=== PATIENT | male | born 1995 | race Caucasian/White ===

== ENCOUNTER 2017-01-19 19:47 | Observation (INO) | payer OTHER ==
[2017-01-19] MEDS ORDERED: NS 1,000 ML IV ONE (20:10)
--- NOTE | 2017-01-19 20:14 | EDPHY ---
H & P Smoking Status: Never smoked Time Seen by Provider: 01/19/17 20:02 HPI/ROS: HPI Right lower abdominal pain. 21 year old male by private vehicle with his mother. This patient complains of worsening right lower quadrant abdominal pain since this morning. Denies testicular pain. He has had some mild nausea but no vomiting. His last meal was about 4 hours ago. Last bowel movement was 4 hours ago. No bloody or melenic stool. No diarrhea. No prior abdominal surgical history. ROS: Constitutional: No fever, no chills. No weakness. Eyes: No discharge. No changes in vision. ENT: No sore throat. No nasal congestion or rhinorrhea. Respiratory: No cough. No shortness of breath. Cardiac: No chest pain, no palpitations. Gastrointestinal: As above, no vomiting, no diarrhea. Genitourinary: No hematuria. No dysuria or increased frequency with urination. No testicular pain. Musculoskeletal: No back pain. No neck pain. No myalgias or arthralgias. Skin: No rashes. Neurological: No headache. No focal weakness or altered sensation. Past medical history: Denies. Social history: His mother is a nurse here at this hospital. He is here in the room currently by himself. Nonsmoker. No alcohol. Physical Exam: General Appearance: Alert, no distress. This patient is responding to questions appropriately and in full sentences. This patient appears well- hydrated and well-nourished. Eyes: Pupils equal and round no pallor or injection. No lid edema, erythema or injection. Respiratory: There are no retractions, lungs are clear to auscultation with good air movement bilaterally. Cardiovascular: Regular rate and rhythm. No murmur. Gastrointestinal: Abdomen is soft with moderate focal right lower quadrant tenderness on palpation at McBurney's point, no masses, bowel sounds normal. No Smith sign. Neurological: Motor sensory function is grossly intact. Cranial nerves are normal. Gait is normal. Skin: Warm and dry, no rashes. Musculoskeletal: Neck is supple and nontender. Extremities are symmetrical. All joints range without pain or impingement. Psychiatric: No agitation. No depression. Database: EKG: Imaging: CT scan of abdomen and pelvis with IV contrast: Procedures: Emergency department course: IV placed. Patient was started on IV normal saline with 1 L to be given over the next hour. He will be NPO. He does not require pain medication at this time. Plan for CT imaging to evaluate for acute appendicitis discussed with him. He consents. 8:55 p.m., we are still awaiting the patient's chemistry panel. He has not gone to CT at this time. His care was turned over to Dr. René Welch at 9: 00 p.m.. Differential Diagnosis: The differential diagnosis on this patient includes but is not limited to appendicitis. Urinary tract infection, ureterolithiasis, testicular torsion, epididymitis unlikely. This represents a partial list of diagnoses considered. These considerations are based on history, physical exam, past history, reassessment and diagnostic testing. (Ortiz Taylor) Constitutional: Initial Vital Signs Temperature (C) 36.6 C 01/19/17 20:04 Heart Rate 59 L 01/19/17 20:04 Respiratory Rate 16 01/19/17 20:04 Blood Pressure 138/64 H 01/19/17 20:04 O2 Sat (%) 97 01/19/17 20:04 O2 Delivery Mode Room Air Allergies/Adverse Reactions: amoxicillin Allergy (Verified 01/19/17 20:03) Penicillins Allergy (Verified 01/19/17 20:03) Home Medications: Medication Instructions Recorded Wellbutrin 100mg (*) 01/19/17 Medical Decision Making ED Course/Re-evaluation: 2130: I did see and evaluate this patient patient is resting comfortably. Declined any pain medicine he states when he does not move does not have any significant abdominal pain however when he goes does sit up he gets sharp stabbing pain in his right lower quadrant. He notices since early this morning around 9:00 a.m.. He has not any vomiting. Denies fever. CT scan abdomen pelvis with IV contrast called to me by Dr. Farah. Reports acute appendicitis. 10 mm hyperemic. No perforation. No abscess I have ordered this patient IV Invanz. He declined pain medicine. I will speak with Dr. Steinberg for admission for acute appendicitis. (René Welch) - Data Points Laboratory Results: Laboratory Results 01/19/17 20:20 01/19/17 20:20 01/19/17 01/19/17 01/19/17 21:05 20:20 20:20 WBC 12.43 10^3/uL H 10^3/uL (3.80-9.50) RBC 5.32 10^6/uL 10^6/uL (4.40-6.38) Hgb 16.7 g/dL g/dL (13.7-17.5) Hct 47.0 % % (40.0-51.0) MCV 88.3 fL fL (81.5-99.8) MCH 31.4 pg pg (27.9-34.1) MCHC 35.5 g/dL g/dL (32.4-36.7) RDW 11.5 % % (11.5-15.2) Plt Count 181 10^3/uL 10^3/uL (150-400) MPV 10.8 fL fL (8.7-11.7) Neut % (Auto) 74.0 % % (39.3-74.2) Lymph % (Auto) 16.5 % % (15.0-45.0) [place] % (Auto) 8.2 % % (4.5-13.0) Eos % (Auto) 0.9 % % (0.6-7.6) Baso % (Auto) 0.2 % L % (0.3-1.7) Nucleat RBC Rel Count 0.0 % % (0.0-0.2) Absolute Neuts (auto) 9.19 10^3/uL H 10^3/uL (1.70-6.50) Absolute Lymphs (auto) 2.05 10^3/uL 10^3/uL (1.00-3.00) Absolute Monos (auto) 1.02 10^3/uL H 10^3/uL (0.30-0.80) Absolute Eos (auto) 0.11 10^3/uL 10^3/uL (0.03-0.40) Absolute Basos (auto) 0.03 10^3/uL 10^3/uL (0.02-0.10) Absolute Nucleated RBC 0.00 10^3/uL 10^3/uL (0-0.01) Immature Gran % 0.2 % % (0.0-1.1) Immature Gran # 0.03 10^3/uL 10^3/uL (0.00-0.10) Sodium 140 mEq/L mEq/L (134-144) Potassium 3.6 mEq/L mEq/L (3.5-5.2) Chloride 99 mEq/L mEq/L (97-110) Carbon Dioxide 25 mEq/l mEq/l (22-31) Anion Gap 16 mEq/L mEq/L (8-16) BUN 14 mg/dL mg/dL (7-23) Creatinine 1.0 mg/dL mg/dL (0.7-1.3) Estimated GFR > 60 Glucose 84 mg/dL mg/dL (70-100) Calcium 9.8 mg/dL mg/dL (8.5-10.4) Urine Color YELLOW Urine Appearance TURBID Urine pH 7.0 (5.0-7.5) Ur Specific [place] 1.016 (1.002-1.030) Urine Protein NEGATIVE (NEGATIVE) Urine Ketones NEGATIVE (NEGATIVE) Urine Blood NEGATIVE (NEGATIVE) Urine Nitrate NEGATIVE (NEGATIVE) Urine Bilirubin NEGATIVE (NEGATIVE) Urine Urobilinogen NEGATIVE EU EU (0.2-1.0) Ur Leukocyte Esterase NEGATIVE (NEGATIVE) Urine RBC NONE SEEN /hpf /hpf (0-3) Urine WBC NONE SEEN /hpf /hpf (0-3) Ur Epithelial Cells NONE SEEN /lpf /lpf (NONE-1+) Amorphous Sediment PRESENT /hpf /hpf (NONE-1+) Urine Glucose NEGATIVE (NEGATIVE) Medications Given: Discontinued Medications Sodium Chloride (Ns) 1,000 mls @ 0 mls/hr IV EDNOW ONE; Wide Open PRN Reason: Protocol Stop: 01/19/17 20:11 Last Admin: 01/19/17 20:16 Dose: 1,000 mls Departure - Departure Clinical Impression: Lower abdominal pain Referrals: NONE *PRIMARY CARE P,. [Primary Care Provider] - As per Instructions
[2017-01-19 20:24] LABS: % IMMATURE GRANULYOCYTES 0.2 % (0.0-1.1); ABSOLUTE IMMATURE GRANULOCYTES 0.03 10^3/uL (0.00-0.10); ADD DIFF? NO; ADD MORPH? NO; ADD SCAN? NO; ATYPICAL LYMPHOCYTE FLAG 0 (0-99); FRAGMENT RBC FLAG 0 (0-99); HEMOGLOBIN 16.7 g/dL (13.7-17.5); LEFT SHIFT FLG 0 (0-99); LIPEMIA HEMOLYSIS FLAG 90 (0-99); MEAN CELL HEMOGLOBIN 31.4 pg (27.9-34.1); MEAN CELL HEMOGLOBIN CONCENTR. 35.5 g/dL (32.4-36.7); MEAN CELL VOLUME 88.3 fL (81.5-99.8); MEAN PLATELET VOLUME 10.8 fL (8.7-11.7); PLATELET CLUMPS FLAG 0 (0-99); PLATELET COUNT 181 10^3/uL (150-400); RED BLOOD CELL COUNT 5.32 10^6/uL (4.40-6.38); RED CELL DISTRIBUTION WIDTH 11.5 % (11.5-15.2)
[2017-01-19 21:01] LABS: ANION GAP 16 mEq/L (8-16); CALCIUM 9.8 mg/dL (8.5-10.4); CARBON DIOXIDE 25 mEq/l (22-31); CHLORIDE 99 mEq/L (97-110); GLOMERULAR FILTRATION RATE > 60; GLUCOSE 84 mg/dL (70-100); POTASSIUM 3.6 mEq/L (3.5-5.2); SODIUM 140 mEq/L (134-144)
[2017-01-19] MEDS ORDERED: IOPAMIDOL (ISOVUE-300) 100 ML BTL ONE (21:10)
[2017-01-19 21:26] LABS: COLOR YELLOW; LEUKOCYTE ESTERASE,URINE NEGATIVE (NEGATIVE); NITRITE,URINE NEGATIVE (NEGATIVE)
[2017-01-19 21:32] LABS: AMORPHOUS PRESENT /hpf (NONE-1+)
[2017-01-19 21:38] LABS: RBC,URINE NONE SEEN /hpf (0-3); WBC,URINE NONE SEEN /hpf (0-3)
[2017-01-19] MEDS ORDERED: ERTAPENEM 1 GM in NS 100 ML IV ONE (22:21)
[2017-01-19] MEDS ORDERED: HYDROmorphONE/DILAUDID 2 MG/ML INJ IVP PRN (22:47)
[2017-01-19] MEDS ORDERED: ONDANSETRON 4 MG/2 ML VIAL IVP ONE (22:48)
[2017-01-19] MEDS ORDERED: LR 1,000 ML IV SCH (23:45)
[2017-01-19] MEDS ORDERED: HYDROmorphONE/DILAUDID 1 MG/ML INJ IVP PRN (23:51)
[2017-01-19] MEDS ORDERED: ONDANSETRON 4 MG/2 ML VIAL IVP PRN (23:52)
--- NOTE | 2017-01-19 23:56 | PDGENHP ---
History and Physical - Chief Complaint abdominal pain - History of Present Illness 21 y/o male with abd pain starting this AM, localizing to the RLQ He came to the [facility] ED and a CT was obtained which showed appendicitis. Surgical consultation was requested History Information - Allergies/Home Medication List Allergies/Adverse Reactions: amoxicillin Allergy (Verified 01/19/17 20:03) Penicillins Allergy (Verified 01/19/17 20:03) Home Medications: Wellbutrin 100mg (*) 01/19/17 [Last Taken Unknown] I have personally reviewed and updated: family history, medical history, social history, surgical history - Surgical History Additional surgical history: circumcision age 14 - Social History Smoking Status: Never smoked Alcohol Use: Rarely Drug Use: Other (former use of marijuana/none currently) Review of Systems Review of Systems: Constitutional: Reports: no symptoms EENMT: Reports: no symptoms Cardiac: Reports: no symptoms Respiratory: Reports: no symptoms Gastrointestinal: Reports: abdominal pain, abdominal distention, nausea Genitourinary: Reports: no symptoms Muscolosketal: Reports: no symptoms Skin: Reports: no symptoms Neurological: Reports: no symptoms Hematologic/Lymphatic: Reports: no symptoms Immunologic/Allergy: Reports: no symptoms Physical Exam Physical Exam: Temp Pulse Resp BP Pulse Ox 36.6 C 58 L 16 122/62 H 97 01/19/17 20:04 01/19/17 23:33 01/19/17 23:33 01/19/17 23:33 01/19/17 23:33 Constitutional: no apparent distress Eyes: anicteric sclera Cardiovascular: regular rate and rhythym Respiratory: no respiratory distress, no rales or rhonchi, clear to auscultation Gastrointestinal: tenderness (RLQ to percusion and palpation/+Rovsing's) Genitourinary: no bladder fullness Skin: warm Musculoskeletal: full muscle strength Neurologic: AAOx3 Psychiatric: interacting appropriately, not anxious Lab Data & Imaging Review 01/19/17 20:20 01/19/17 20:20 WBC 12.43 10^3/uL (3.80-9.50) H 01/19/17 20:20 RBC 5.32 10^6/uL (4.40-6.38) 01/19/17 20:20 Hgb 16.7 g/dL (13.7-17.5) 01/19/17 20:20 Hct 47.0 % (40.0-51.0) 01/19/17 20:20 MCV 88.3 fL (81.5-99.8) 01/19/17 20:20 MCH 31.4 pg (27.9-34.1) 01/19/17 20:20 MCHC 35.5 g/dL (32.4-36.7) 01/19/17 20:20 RDW 11.5 % (11.5-15.2) 01/19/17 20:20 Plt Count 181 10^3/uL (150-400) 01/19/17 20:20 MPV 10.8 fL (8.7-11.7) 01/19/17 20:20 Neut % (Auto) 74.0 % (39.3-74.2) 01/19/17 20:20 Lymph % (Auto) 16.5 % (15.0-45.0) 01/19/17 20:20 [place] % (Auto) 8.2 % (4.5-13.0) 01/19/17 20:20 Eos % (Auto) 0.9 % (0.6-7.6) 01/19/17 20:20 Baso % (Auto) 0.2 % (0.3-1.7) L 01/19/17 20:20 Nucleat RBC Rel Count 0.0 % (0.0-0.2) 01/19/17 20:20 Absolute Neuts (auto) 9.19 10^3/uL (1.70-6.50) H 01/19/17 20:20 Absolute Lymphs (auto) 2.05 10^3/uL (1.00-3.00) 01/19/17 20:20 Absolute Monos (auto) 1.02 10^3/uL (0.30-0.80) H 01/19/17 20:20 Absolute Eos (auto) 0.11 10^3/uL (0.03-0.40) 01/19/17 20:20 Absolute Basos (auto) 0.03 10^3/uL (0.02-0.10) 01/19/17 20:20 Absolute Nucleated RBC 0.00 10^3/uL (0-0.01) 01/19/17 20:20 Immature Gran % 0.2 % (0.0-1.1) 01/19/17 20:20 Immature Gran # 0.03 10^3/uL (0.00-0.10) 01/19/17 20:20 Sodium 140 mEq/L (134-144) 01/19/17 20:20 Potassium 3.6 mEq/L (3.5-5.2) 01/19/17 20:20 Chloride 99 mEq/L (97-110) 01/19/17 20:20 Carbon Dioxide 25 mEq/l (22-31) 01/19/17 20:20 Anion Gap 16 mEq/L (8-16) 01/19/17 20:20 BUN 14 mg/dL (7-23) 01/19/17 20:20 Creatinine 1.0 mg/dL (0.7-1.3) 01/19/17 20:20 Estimated GFR > 60 01/19/17 20:20 Glucose 84 mg/dL (70-100) 01/19/17 20:20 Calcium 9.8 mg/dL (8.5-10.4) 01/19/17 20:20 Urine Color YELLOW 01/19/17 21:05 Urine Appearance TURBID 01/19/17 21:05 Urine pH 7.0 (5.0-7.5) 01/19/17 21:05 Ur Specific [place] 1.016 (1.002-1.030) 01/19/17 21:05 Urine Protein NEGATIVE (NEGATIVE) 01/19/17 21:05 Urine Ketones NEGATIVE (NEGATIVE) 01/19/17 21:05 Urine Blood NEGATIVE (NEGATIVE) 01/19/17 21:05 Urine Nitrate NEGATIVE (NEGATIVE) 01/19/17 21:05 Urine Bilirubin NEGATIVE (NEGATIVE) 01/19/17 21:05 Urine Urobilinogen NEGATIVE EU (0.2-1.0) 01/19/17 21:05 Ur Leukocyte Esterase NEGATIVE (NEGATIVE) 01/19/17 21:05 Urine RBC NONE SEEN /hpf (0-3) 01/19/17 21:05 Urine WBC NONE SEEN /hpf (0-3) 01/19/17 21:05 Ur Epithelial Cells NONE SEEN /lpf (NONE-1+) 01/19/17 21:05 Amorphous Sediment PRESENT /hpf (NONE-1+) 01/19/17 21:05 Urine Glucose NEGATIVE (NEGATIVE) 01/19/17 21:05 Visualized and Interpreted imaging results: Yes Interpretation: CT reviewed/mildly dilated appendix without free fluid Assessment & Plan Assessment: Acute appendicitis Plan: We discussed laparoscopic appendectomy and the alternative of antibiotics. I recommended surgery. We discussed the procedure, expected risks and recovery. Informed consent was obtained. Aurelia Steinberg MD, FACS
--- NOTE | 2017-01-20 01:12 | PDANEPAE ---
ANE History of Present Illness John CASTILLO Past Medical History - Cardiovascular History Hx Hypertension: No - Pulmonary History Hx Asthma/Reactive Airway Disease: No Hx Oxygen in Use at Home: No Hx Sleep Apnea: No - Endocrine History Hx Diabetes: No - Chronic Pain History Chronic Pain: No ANE Review of Systems Review of Systems: ANE Patient History - Allergies Allergies/Adverse Reactions: amoxicillin Allergy (Verified 01/19/17 20:03) Penicillins Allergy (Verified 01/19/17 20:03) - Home Medications Home Medications: Wellbutrin 100mg (*) 01/19/17 [Last Taken Unknown] - NPO status NPO Since - Liquids (Date): 01/19/17 NPO Since - Liquids (Time): 19:00 NPO Since - Solids (Date): 01/19/17 NPO Since - Solids (Time): 16:00 - Smoking Hx Smoking Status: Never smoked - Alcohol Use Alcohol Use: Rarely ANE Labs/Vital Signs - Labs Result Diagrams: 01/19/17 20:20 01/19/17 20:20 - Vital Signs Blood Pressure: 136/72 Heart Rate: 78 Respiratory Rate: 16 O2 Sat (%): 95 Height: 167.64 cm Weight: 58.967 kg ANE Physical Exam - Airway Neck exam: FROM Mallampati Score: Class 2 - Pulmonary Pulmonary: clear to auscultation - Cardiovascular Cardiovascular: regular rate and rhythym - ASA Status ASA Status: I, E ANE Anesthesia Plan Anesthesia Plan: general endotracheal anesthesia
[2017-01-20] MEDS ORDERED: BUPIVACAINE 0.25% 30 ML SDV ONE (01:32)
[2017-01-20] MEDS ORDERED: fentaNYL 100 MCG/2 ML INJ ONE (01:38)
[2017-01-20] MEDS ORDERED: PROPOFOL 200 MG/20 ML VIAL ONE (01:38)
[2017-01-20] MEDS ORDERED: LIDOCAINE 2% 5 ML SDV ONE (01:39)
[2017-01-20] MEDS ORDERED: ONDANSETRON 4 MG/2 ML VIAL ONE (01:40)
[2017-01-20] MEDS ORDERED: DEXAMETHASONE 4 MG/ML VIAL ONE (01:40)
[2017-01-20] MEDS ORDERED: LR 1,000 ML IV ONE (02:08)
[2017-01-20] MEDS ORDERED: SUGAMMADEX SODIUM 200 MG/2 ML VIAL IVP ONE (02:14)
--- NOTE | 2017-01-20 02:29 | POSTANESTH ---
Post Anesthetic Evaluation Cardiovascular Status: Normal, Stable Respiratory Status: Normal, Stable Level of Consciousness/Mental Status: Can Participate in Eval, Mildly Sleepy, Arousable Pain Control: Adequate, Prn Tx Ordered Nausea/Vomiting Control: Adequate, Prn Tx Ordered Complications Possibly Related to Anesthesia: None Noted
--- NOTE | 2017-01-20 02:30 | POSTOPPROG ---
Post Op Note Date of Operation: 01/20/17 Surgeon: René Steinberg (, FACS) Anesthesiologist: Manuel Ramirez DO Anesthesia: GET(General Endotracheal) Pre-op Diagnosis: appendicitis Post-op Diagnosis: same Procedure: laparoscopic appendectomy Findings: acute suppurative appendicitis Inf/Abcess present in the surg proc area at time of surgery?: Yes Depth: Organ Space EBL: Minimal
[2017-01-20] MEDS ORDERED: HYDROCODONE/APAP 5/325 TAB PO PRN (02:33)
[2017-01-20] MEDS ORDERED: D5W 1/2 NS W/ 20 KCl/L 1,000 ML IV SCH (02:45)
[2017-01-20 03:03] VITALS: O2SAT 94
[2017-01-20 05:33] VITALS: RESP 16
[2017-01-20] MEDS ORDERED: IBUPROFEN 600 MG TAB PO SCH (06:00)
[2017-01-20 07:32] VITALS: BP 111/46; PULSE 69; TEMP 97.9
--- NOTE | 2017-01-20 07:36 | PDDCSUM ---
Discharge Summary Discharge Summary: DOA: 01/19/17 DOD: 01/20/17 DC Dx: appendicitis Rx: lap appendectomy Course: Rod was admitted for observation after lap appendectomy for acute appendicitis. He had good pain control and was discharged the morning of surgery with instructions in diet, activity and wound care. He will follow up in my office in 1-2 weeks. His pain was controlled with Ibuprofen. DC meds: Painter 5/325 #14 Ibuprofen 600mg #30 Senokot-S #30 he will resume taking Wellbutrin as prescribed.
[2017-01-20] MEDS ORDERED: SENNOSIDES/DOCUSATE SODIUM TAB PO SCH (09:00)
--- NOTE | 2017-01-20 10:08 | HOSPPROG ---
Hospitalist Progress Note Assessment/Plan: Was asked by Dr. Steinberg to give the patient prescription for [place]. He had for gotten to sign his prescription. I came by to follow up with the patient. He is status post appendectomy. His pain is well managed overall. Explained to him to use the narcotics sparingly. And to do not drink or drive while on the [place]. He understands this and will follow up with Dr. Steinberg in the outpatient setting. Objective: Vital Signs Temp Pulse Resp BP Pulse Ox 36.6 C 69 16 111/46 L 94 01/20/17 07:31 01/20/17 07:31 01/20/17 07:31 01/20/17 07:31 01/20/17 07:31 01/19/17 01/20/17 01/21/17 05:59 05:59 05:59 Intake Total 1330 Output Total 0 Balance 1330 ICD10 Worksheet Patient Problems: Problems Problem Status Onset Lower abdominal pain Acute
--- NOTE | 2017-01-20 13:54 | ASDISCHSUM ---
Discharge Information Plan Status:Home with No Needs Medically Cleared to Leave: Discharge Date:01/20/2017 11:27 AM CM D/C Disposition:Home, Routine, Self-Care ADT D/C Disposition:Home, Routine, Self-Care Projected Discharge Date:01/20/2017 11:27 AM Transportation at D/C: Discharge Delay Reason: Follow-Up Date:01/20/2017 11:27 AM Discharge Slot: Final Diagnosis: Placement Information Patient Contact Information Contact Name:ANDERSON Relationship:Mother Address:[facility] [address] City:[place] Alternate Phone: [facility]/Zip Code:[place] [address] Email: Financial Information Financial Class:[facility] Primary Plan Desc:[facility] Primary Plan Number:[id number] Secondary Plan Desc: Secondary Plan Number: Assessment Information Intervention Information
== END 2017-01-20 11:27 | disposition home or self-care (01) ==
LOC: INTOOBSV 22:34 → F3E 01-20 00:07
PROVIDERS: ADMIT Surgery; ATTEND Surgery
PROC: 0DTJ4ZZ Resection of Appendix, Percutaneous Endoscopic Approach (ICD-10-PCS; principal; 2017-01-19)
DX: K35.80 Unspecified acute appendicitis (principal)
CPT/HCPCS: 44970; 74177; G0378; 96365; J1100; J1170; J1335; J2405; J2704; J3010; Q9967